=== PATIENT | female | born 1950 | race Caucasian/White ===

== ENCOUNTER 2017-05-05 16:15 | Inpatient (IN) | payer MEDICARE ==
[~2017-05-05] VITALS: Ht 157.5 cm; Wt 54.1 kg
[~2017-05-05 16:15] MED LIST: ADDE10 PO; ALBU0.08 NEB; ASPI81CH CHEW; DIAZ10TA PO; HYDR0.2O7 TOPICAL; MELO-1 PO; METF500T4 PO; NIAC100T2 PO; PANT20TA2 PO; SITA1TAB2 PO
[2017-05-06] MEDS ORDERED: PERC10TA27 PO (10:12)
[2017-05-06] MEDS ORDERED: LISI-519 PO (10:12)
[2017-05-23] MEDS ORDERED: INSULIN HUMAN REGULAR 1,000 UNITS/10 ML VIAL SQ PRN (06:30)
[2017-05-23] MEDS ORDERED: CHLORHEXIDINE GLUCONATE 2 % 1 PACK (2 CLOTHS) TOPICAL PRN (06:30)
[2017-05-23] MEDS ORDERED: METOPROLOL TARTRATE 25 MG TAB PO PRN (06:30)
[2017-05-23] MEDS ORDERED: SODIUM CHLORID 0.9% 500 ML IV PRN (06:30)
[2017-05-23] MEDS ORDERED: POVIDONE IODINE 5% (ANTISEPSIS KIT) 4 APPLICATIONS EACH NARE PRN (06:30)
[2017-05-23] MEDS ORDERED: LACTATED RINGER'S 1000 ML IV PRN (06:30)
[2017-05-23] MEDS ORDERED: SODIUM CHLORIDE 0.9% INJ 100 ML ONE ×3 (06:58→12:53)
[2017-05-23 07:14] VITALS: BP 91/54; PULSE 70; RESP 20; TEMP 98; O2SAT 100
[2017-05-23] MEDS: CLINDAMYCIN 600 MG/NS 100 ML IV SCH ×4 (07:27→13:10)
[2017-05-23] MEDS ORDERED: HEPARIN SODIUM - SQ 10,000 UNITS/ML VIAL ONE (07:43)
[2017-05-23] MEDS ORDERED: GELFOAM SIZE 100 ONE (07:44)
[2017-05-23] MEDS ORDERED: GENTAMICIN SULFATE 80 MG/2 ML VIAL ONE (07:44)
[2017-05-23] MEDS ORDERED: LIDOCAINE 1%/EPINEPHrine 1:100,000 SOLN 20 ML VIAL ONE (07:44)
[2017-05-23] MEDS ORDERED: THROMBIN (TOPICAL) 5,000 UNIT VIAL ONE (07:44)
[2017-05-23] MEDS ORDERED: ACETAMINOPHEN 1000 MG/100 ML VIAL IV ONE ×3 (08:09→18:00)
[2017-05-23] MEDS ORDERED: MIDAZOLAM HCL 2 MG/2 ML VIAL ONE (08:17)
[2017-05-23] MEDS ORDERED: NALOXONE HCL 0.4 MG/ML AMP IV PRN (08:45)
[2017-05-23] MEDS ORDERED: ACETAMINOPHEN/HYDROcodone 325 MG/5 MG TAB PO PRN (08:45)
[2017-05-23] MEDS ORDERED: HYDROmorphone HCL PF 1 MG/ML VIAL IV PRN (08:45)
[2017-05-23] MEDS ORDERED: SODIUM CHLORIDE 0.9% FLUSH 5 ML FLUSH IVF PRN ×3 (08:45→09:00)
[2017-05-23] MEDS ORDERED: ONDANSETRON HCL 4 MG/2 ML VIAL IV PRN (08:45)
[2017-05-23] MEDS ORDERED: ACETAMINOPHEN/HYDROcodone 325 MG/10 MG TAB PO PRN (08:45)
[2017-05-23] MEDS ORDERED: SODIUM CHLORIDE 0.9% FLUSH 5 ML FLUSH IVF SCH ×2 (09:00)
[2017-05-23] MEDS ORDERED: DEXTROSE 50% IN WATER 50 ML VIAL(D50) IV PRN (09:00)
[2017-05-23] MEDS ORDERED: RESP: ALBUTEROL 2.5 MG/3 ML NEB (PRN) NEB (09:00)
[2017-05-23] MEDS ORDERED: D5-1/2 NS + KCL 20 MEQ INJ 1,000 ML IV SCH (09:00)
[2017-05-23] MEDS ORDERED: HYDROmorphone HCL PCA 6 MG/30 ML IV SCH (09:00)
[2017-05-23] MEDS ORDERED: GLUCAGON 1 MG/ML VIAL OTHER PRN (09:00)
[2017-05-23] MEDS ORDERED: oxyCODONE/ACETAMINOPHEN 10 MG/325 MG TAB PO PRN (09:00)
[2017-05-23] MEDS: NIACIN 100 MG TAB PO SCH ×2 (10:00→20:51)
[2017-05-23] MEDS: metFORMIN HCL 500 MG TAB PO SCH ×2 (10:00→18:00)
[2017-05-23] MEDS: DOCUSATE SODIUM 100 MG CAP PO SCH ×2 (10:00→20:51)
[2017-05-23] MEDS ORDERED: HYDROCORTISONE VALERATE 0.2% TOPICAL SCH (10:00)
[2017-05-23] MEDS: DEXTROAMPHETAMINE/AMPHETAMINE 10 MG TAB PO SCH ×2 (10:00→20:51)
[2017-05-23] MEDS: PANTOPRAZOLE SOD 40 MG DELAYED RELEASE TAB PO SCH (10:00)
[2017-05-23] MEDS ORDERED: PROPOFOL 200 MG/20 ML AMP IV ONE (12:00)
[2017-05-23] MEDS ORDERED: PHENYLEPHRINE HCL 10 MG/ML VIAL IV ONE (12:00)
[2017-05-23] MEDS ORDERED: PHENYLEPH/NS 1000 MCG/10 ML SYR IV ONE ×2 (12:00)
[2017-05-23] MEDS ORDERED: LACTATED RINGER'S 1000 ML INJ 1,000 ML IV ONE (12:00)
[2017-05-23] MEDS ORDERED: NORMOSOL R INJ 1,000 ML IV ONE (12:00)
[2017-05-23] MEDS ORDERED: ONDANSETRON HCL 4 MG/2 ML VIAL IV PUSH ONE (12:00)
[2017-05-23] MEDS ORDERED: fentaNYL CITRATE 250 MCG/5 ML AMP ONE (15:44)
--- NOTE | 2017-05-23 17:38 | RADRPT ---
EXAM DATE/TIME: 05/23/2017 09:24 [facility] COMPARISON: No previous studies available for comparison. INDICATIONS : Lumbar L2-3-4 fusion with revision of lumbar L4-5-S1 fusion. Semi-laminectomy and cyst removal. OR. MEDICAL HISTORY : Myocardial infarction. SURGICAL HISTORY : Coronary artery stent. Fusion, lumbar. ENCOUNTER: Initial ACUITY: 1 day PAIN SCORE: Non-responsive. LOCATION: Lumbar L2-S1 FINDINGS: Multilevel fusion is identified with gross anatomical alignment. CONCLUSION: Intraoperative examination. Leonie Fiore MD on May 23, 2017 at 17:36 Board Certified Radiologist. This report was verified electronically.
[2017-05-23] MEDS ORDERED: NOREPINEPHRINE 4 MG/4 ML AMP ONE (17:52)
--- NOTE | 2017-05-23 17:52 | PD.OP ---
Operative Report Date of Surgery: May 23, 2017 Preoperative Diagnosis: (1) Lumbar canal stenosis (2) Lumbar radiculopathy (3) Synovial cyst of lumbar facet joint (4) Low back pain 1. L2-3, L3 4 degenerative disc disease, adjacent level degeneration above previous L4-S1 fusion 2. Mild L2-3 and severe L3 4 canal stenosis 3. L3 4 synovial cyst 4. Left lumbar radiculopathy 5. Severe progressive low back pain Postoperative Diagnosis: (1) Lumbar canal stenosis (2) Lumbar radiculopathy (3) Synovial cyst of lumbar facet joint (4) Low back pain 1. L2-3, L3 4 degenerative disc disease, adjacent level degeneration above previous L4-S1 fusion 2. Mild L2-3 and severe L3 4 canal stenosis 3. L3 4 synovial cyst 4. Left lumbar radiculopathy 5. Severe progressive low back pain Procedure: 1. Bilateral L3 4 decompressive semi-laminectomy, medial facetectomy- microtechnique 2. Resection left L3 4 synovial cyst-microtechnique 3. Bilateral L2-L5 posterior lateral fusion with local autograft bone, vertical cancellus chips and DBM-stem cell matrix 4. Bilateral L2-S1 posterior instrumentation with replacement of previous bilateral L4 pedicle screws and left L5 pedicle screw, placement of new bilateral L2-L3 pedicle screws Anesthesia: Gen. Surgeon: Daniel Mccray Manager Strategic Partnerships(s): Hilary Baldwin Operation and Findings: Findings: Severe bilateral L3-4 ligament hypertrophy with significant separation of the bilateral L2-3 and L3 4 facet. Moderate left L34 synovial cyst compressing the exiting left L4 nerve root. Procedure in detail: The patient was brought to the operating room and general endotracheal anesthesia induced without difficulty Lines were established per anesthesia. Sequential compression devices were in place. Marina catheter was placed. The patient was positioned prone on the concentric De table with the side bolsters and all extremities appropriately padded Leads for intraoperative neuro monitoring were placed prior to positioning and a baseline study obtained Appropriate timeout procedure was performed with all personnel present and in agreement The lumbar region was shaved with clippers and sterilely prepped and draped 1% Xylocaine with epinephrine was used for local infiltration over the incision site which was made from the L2 through L5 levels in the midline, extending partially over the previous mid lumbar midline incision. The incision was carried sharply down to the lumbodorsal fascia which was sharply incised Bunn elevator was used for subperiosteal elevation of paraspinous musculature and fascia away from the lamina and spinous processes of L2, L3, L4 bilaterally. The deep self-retaining retractor was placed and used mostly unilaterally and moved at least every 10 minutes during the procedure to avoid excessive muscle retraction. The appropriate levels were verified with intraoperative C-arm The microscope was moved into place and used for the remainder of the procedure including the closure The entry point for the pedicle screws at the bilateral L2 and L3 levels were determined by anatomic and radiographic landmarks. The pedicle screw site was prepared with the awl followed by the pedicle finder and the tap. The ball tip probe was used to probe the pedicle screw site to ensure that there was no breakout through the pedicle. The appropriate size 5.5 x 40 mm Spine Wave Viper pedicle screw was placed at each pedicle screw site The screw placement was verified with intraoperative C-arm and intraoperative neural monitoring and felt to be satisfactory. Initially, it was attempted to place a [id number] connector between the existing L4 and L5 pedicle screws to connect to the new L2 and L3 screws. However due to the relatively lateral placement of the previous screws and moo and the excessive kyphotic angle at the L3-4 level, it was not possible to utilize the available [id number] connector. As it was elected to remove the existing L4-S1 moo and utilize the screws for the new instrumentation construct. Utilizing the same incision, the midline fascia was released down to the S1 level and the previous L5 and S1 screws were exposed and the locking caps were moved from the bilateral L4, L5, S1 existing screws. The previous moo was then removed on each side. Due to the excessive L3-4 kyphotic curvature, the bilateral L4 and left L5 existing screws were removed and replaced with 7.5 x 45 mm spine wave sniper screws. The new L4 screws were intentionally left a little high in the pedicle in order to allow the moo to connect across the kyphotic segment to the new L2 and L3 screws. The new screws were tested with intraoperative EMG and felt to be satisfactory. The 90 mm and 100 mm new 5.5 mm rods were then bent to the appropriate curvature for the right and left L2-S1 posterior instrumentation construct respectively. The locking caps were then placed and final tightened with the torque wrench and antitorque device. The final instrumentation construct was checked with intraoperative C-arm and felt to be satisfactory. The patient had significant lordosis at the L2-3 and to a greater extent L3 4 levels. It was not felt possible to achieve adequate lordosis with an anterior fusion cage particularly at the L3 4 level, and since the patient did not have gross instability, it was elected to perform a posterior lateral fusion only, rather than an interbody fusion at these levels. Also, because there was relatively mild to moderate canal and lateral recess stenosis at the L2-3 level without significant L3 nerve impingement, it was felt that a fusion without decompression was appropriate for this level. The L2-3 fusion was indicated due to the significant bilateral L2-3 facet separation with moderate disc displacement, predisposing the patient to additional early adjacent level degeneration above the more caudal fusion. The TPS drill with a 5 mm bone bur followed by the Kerrison rongeur was used to remove the inferior two thirds of the left L3 lamina and the superior aspect of the residual left L4 lamina. In order to preserve the right side lamina for the posterior lateral fusion, the right L3 4 decompression was performed by working approximately midline with the TPS drill and the Kerrison rongeur to remove only the ventral portion of the right L3-L4 lamina and the right L3 4 medial facet. Hypertrophied ligamentum flavum was elevated away from the thecal sac and exiting nerve roots with the thin ligament dissector and resected with a 15 blade knife and Kerrison rongeur. There was severe bilateral L3-4 ligament hypertrophy. Upon retracting the ligament on the left side, moderate synovial cyst was encountered impinging on the left L4 nerve root. The cyst and hypertrophied ligament were elevated away from the nerve within ligament dissector and resected with the 3 mm Kerrison rongeur. A portion of the left L3-4 facet was left intact and the facet decorticated with the TPS drill for subsequent fusion. The bilateral L4 nerve root was palpated as it coursed around the L4 pedicle and followed back to the thecal sac. The 2 mm Kerrison was used on each side to further decompress the L4 nerve roots down to the level of the inferior medial L4 pedicle. The thecal sac and exiting nerve root were freed up from surrounding adhesions with the microdissectors and gently retracted medially revealing the underlying disc and annulus. No annular tear or herniated disc material was encountered. There was mostly mild diffuse disc and annular displacement without significant compression on the thecal sac or exiting nerve root. The region was well irrigated with antibiotic irrigation The posterior lateral structures at the bilateral L2-L5 levels were decorticated with the TPS drill The shavings were left in place, to which was added to the mixture of the remaining autograft bone and cortical cancellus chips and demineralized bone and stem cell matrix which was firmly packed in place for the posterior lateral fusion. The closure was performed with 0 Vicryl interrupted for the deep and superficial fascia, with 3-0 Vicryl for the subcutaneous closure and 4-0 Vicryl running subcuticular closure. Dressings sterile Mastisol, Steri-Strips and Primapore was placed The patient was turned into supine position and taken to recovery room in stable condition All counts were correct at the end of the case Estimated blood loss was 400 cc No specimen was sent to pathology Neuro monitoring was stable during the procedure Daniel Mccray MD May 23, 2017 17:52
[2017-05-23] MEDS ORDERED: NOREPINEPHRINE-DEXTROSE DRIP 250 ML IV SCH (18:00)
[2017-05-23] MEDS: KETOROLAC TROMETHAMINE 30 MG/ML (IVP) VIAL IV PUSH SCH (18:00)
[2017-05-23] MEDS ORDERED: SODIUM CHLOR 0.9% 250 ML INJ 250 ML IV ONE (18:00)
[2017-05-23] MEDS ORDERED: TERBUTALINE INJ 1 MG/ML AMP SQ PRN (18:00)
[2017-05-23] MEDS ORDERED: DO NOT ADM ANY ANTICOAGULANT DRUGS PRN (18:00)
[2017-05-23] MEDS ORDERED: LORazepam 2 MG/ML VIAL IV PUSH PRN (18:15)
[2017-05-23] MEDS: 1/2 NS + KCL 20 MEQ INJ 1,000 ML IV SCH ×2 (18:28→19:30)
[2017-05-23] MEDS: SODIUM CHLORIDE 0.9% FLUSH 5 ML FLUSH IVF SCH ×2 (18:30→20:46)
[2017-05-23] MEDS ORDERED: METHOCARBAMOL INJ 1,000 MG in SODIUM CHLOR 0.9% 250 ML INJ 250 ML IV ONE (18:45)
[2017-05-23] MEDS: INSULIN NovoLIN REGULAR SUPPLEMENTAL SCALE SQ SCH ×2 (18:48→20:46)
[2017-05-23 19:07] LABS: BICARBONATE 20.6 MEQ/L (21.0-32.0); POTASSIUM 4.1 MEQ/L (3.5-5.1)
[2017-05-23 20:05] LABS: AUTOMATED NEUTROPHIL # 10.9 TH/MM3 (1.8-7.7); BASOPHIL % 0.1 % (0.0-2.0); HEMATOCRIT 30.7 % (35.0-46.0); HEMO FLAGS DIFF FINAL; LYMPH % 3.9 % (9.0-44.0); LYMPHOCYTE # 0.5 TH/MM3 (1.0-4.8); MEAN CELL VOLUME 86.6 FL (80.0-100.0); MEAN CORPUSCULAR HEMOGLOBIN 27.6 PG (27.0-34.0); MEAN CORPUSCULAR HGB CONC 31.9 % (32.0-36.0); PLATELET COUNT 262 TH/MM3 (150-450); RED BLOOD COUNT 3.54 MIL/MM3 (4.00-5.30); RED CELL DISTRIBUTION WIDTH 15.2 % (11.6-17.2); WHITE BLOOD COUNT 12.1 TH/MM3 (4.0-11.0)
[2017-05-24] VITALS (15 sets, daily range): BP systolic 89–134; BP diastolic 51–72; PULSE 69–88; RESP 14–22; TEMP 98.2–99.5; O2SAT 97–100
[2017-05-24] MEDS: KETOROLAC TROMETHAMINE 30 MG/ML (IVP) VIAL IV PUSH SCH ×3 (00:53→11:34)
[2017-05-24] MEDS: 1/2 NS + KCL 20 MEQ INJ 1,000 ML IV SCH ×2 (04:09→14:12)
[2017-05-24] MEDS: INSULIN NovoLIN REGULAR SUPPLEMENTAL SCALE SQ SCH ×4 (07:00→21:00)
[2017-05-24] MEDS: PANTOPRAZOLE SOD 40 MG DELAYED RELEASE TAB PO SCH ×2 (09:00→09:51)
[2017-05-24] MEDS: SODIUM CHLORIDE 0.9% FLUSH 5 ML FLUSH IVF SCH ×2 (09:00→20:34)
[2017-05-24] MEDS: NIACIN 100 MG TAB PO SCH ×2 (09:00→20:33)
[2017-05-24] MEDS: LISINOPRIL 5 MG TAB PO SCH (09:00)
[2017-05-24] MEDS: DEXTROAMPHETAMINE/AMPHETAMINE 10 MG TAB PO SCH ×3 (09:00→20:33)
[2017-05-24] MEDS: metFORMIN HCL 500 MG TAB PO SCH ×2 (09:51→18:28)
[2017-05-24] MEDS: DOCUSATE SODIUM 100 MG CAP PO SCH ×2 (09:51→20:33)
--- NOTE | 2017-05-24 10:26 | HHI.NSPN ---
(Landen Rodriguez) History Chief Complaint: Back pain. (Landen Rodriguez) Interval History 05/23: The patient presented to [facility] to undergo a bilateral L3-4 decompressive laminectomy with resection of a left L3-4 synovial cyst followed by a bilateral L2-L5 posterior lateral fusion and bilateral L2-S1 posterior instrumentation due to L2-3 and L3-4 degenerative disc disease with canal stenosis and radiculopathy and a L3-4 synovial cyst. Post-operatively she was admitted to the [facility]. 05/24: The patient is awake and alert when seen this morning. She reports pain to the back which she relates to having been up and ambulating. She was seen ambulating with a wheeled walker with Physical Therapy beside her this morning prior to being seen. She does appear mildly uncomfortable. She does report left anterior wrist pain where an apparent a-line was in place. Nursing states the patient's systolic blood pressure is better and she is going to try to wean off the norepinephrine which is infusing at 2 mcg/min at present. The patient states she was on hydromorphone [employer] which was discontinued this morning because she didn't want it. She states that Pain Management had her on Percocet 10 in the morning and evening with a half tab in the afternoon which is what she wants her pain meds to be. (Landen Rodriguez) System Review Comments Constitutional: Patient denies any fever or chills. HEENT: Patient denies any visual or hearing difficulty. Neck: Patient denies any neck pain or difficulty moving the neck. Respiratory: Patient denies any shortness of breath or productive cough. Cardiovascular: Patient denies any chest pain, palpitations or irregular heartbeat. Gastrointestinal: Patient denies any abdominal pain, nausea, vomiting or incontinence of stool. Genitourinary: Patient has Marina catheter in place. Musculoskeletal: Patient complains of pain to the back and also to the left distal forearm/wrist. She endorses some weakness to the lower extremities with the left being the worse. She denies any other pain to the extremities. Neurologic: Patient states she has some weakness to the lower extremities with the left being the worse. She denies any headache, dizziness, numbness or tingling. (Landen Rodriguez) Exam Results Vital Signs Date Time Temp Pulse Resp B/P Pulse Ox O2 Delivery O2 Flow Rate FiO2 05/24/17 08:00 76 05/24/17 07:27 100 Nasal Cannula 2.00 05/24/17 06:00 14 05/24/17 04:00 98.2 122/72 Intake and Output 05/23/17 05/23/17 05/23/17 07:59 15:59 23:59 Intake Total 2450 ml Output Total 2000 ml Balance 450 ml (Landen Rodriguez) Physical Examination GENERAL: Patient is awake & alert and appears mildly uncomfortable w/o any apparent distress, normal affect. SKIN: Warm, dry & intact except for lumbar surgical incision w/intact dressing w /o any shadowing, erythema or streaking noted. The left anterior wrist is mildly swollen and ecchymotic and there appears to be a puncture site to the area. HEENT: Normocephalic, atraumatic. NECK: Full active ROM w/o pain, no JVD, trachea midline. CARDIOVASCULAR: S1S2 w/RRR w/o M/G/R, radial & pedal pulses 2+ bilaterally, cap refill < 2 sec, no pedal edema. Monitor is sinus rhythm w/o any ectopy noted. A norepinephrine drip is infusing a 2 mcg/min. RESPIRATORY: CTAB w/o W/R/R, equal excursion, non-laboured, on RA. GASTROINTESTINAL: Abdomen soft, nontender, positive bowel sounds. GENITOURINARY: A Marina catheter is in place to BSD w/clear yellow urine. MUSCULOSKELETAL: NARVAEZ w/o difficulty. Left anterior wrist/distal forearm TTP. Back TTP at surgical incision. NEUROLOGICAL: AAOx3. Speech clear & appropriate. Follows simple commands. Sensation intact to light touch to extremities. Motor strength is 3+ to 4/5 to the lower extremities with the left foot being weakest, RUE appears to be 4+ to 5/5, and LUE 3 to 4/5, some weakness may be due to pain . (Landen Rodriguez) Lab, Micro, Other Results Allergies Coded Allergies Type Severity Reaction Last Updated Verified Amlodipine Allergy Severe rash 05/06/17 Yes CRESTOR Allergy Severe Anaphylaxis 05/06/17 Yes Lipitor Allergy Severe swelling rash tongue swells 05/06/17 Yes Penicillin Allergy Severe THROAT CLOSES UP 05/06/17 Yes Strattera Allergy Severe Anaphylaxis 05/06/17 Yes Sulfa Allergy Severe THROAT CLOSES UP 05/06/17 Yes Recent Impressions Lumbar Spine X-Ray 05/23/17 0000 Signed Impressions: Service Date/Time: Tuesday, May 23, 2017 09:24 - CONCLUSION: Intraoperative examination. Leonie Fiore MD // 05:59 17:59 05:59 17:59 05:59 17:59 Intake Total 2000 ml 450 ml 3544 ml Output Total 1750 ml 250 ml 1100 ml Balance 250 ml 200 ml 2444 ml Intake Oral 100 ml 600 ml IV Total 350 ml 2944 ml Other 2000 ml Output Urine Total 1350 ml 250 ml 1100 ml Estimated Blood Loss 400 ml Laboratory Tests Test 05/23/17 05/23/17 05/23/17 07:15 18:28 19:53 Blood Type A NEGATIVE Antibody Screen NEGATIVE Sodium Level 140 MEQ/L Potassium Level 4.1 MEQ/L Chloride Level 108 MEQ/L Carbon Dioxide Level 20.6 MEQ/L Anion Gap 11 MEQ/L Blood Urea Nitrogen 15 MG/DL Creatinine 1.02 MG/DL Estimat Glomerular Filtration 55 ML/MIN Rate Random Glucose 145 MG/DL Calcium Level 8.3 MG/DL White Blood Count 12.1 TH/MM3 Red Blood Count 3.54 MIL/MM3 Hemoglobin 9.8 GM/DL Hematocrit 30.7 % Mean Corpuscular Volume 86.6 FL Mean Corpuscular Hemoglobin 27.6 PG Mean Corpuscular Hemoglobin 31.9 % Concent Red Cell Distribution Width 15.2 % Platelet Count 262 TH/MM3 Mean Platelet Volume 7.5 FL Neutrophils (%) (Auto) 90.0 % Lymphocytes (%) (Auto) 3.9 % Monocytes (%) (Auto) 6.0 % Eosinophils (%) (Auto) 0.0 % Basophils (%) (Auto) 0.1 % Neutrophils # (Auto) 10.9 TH/MM3 Lymphocytes # (Auto) 0.5 TH/MM3 Monocytes # (Auto) 0.7 TH/MM3 Eosinophils # (Auto) 0.0 TH/MM3 Basophils # (Auto) 0.0 TH/MM3 CBC Comment DIFF FINAL Differential Comment Vital Signs Date Time Temp Pulse Resp B/P Pulse Ox O2 Delivery O2 Flow Rate FiO2 05/24/17 08:00 76 05/24/17 07:27 100 Nasal Cannula 2.00 05/24/17 07:00 100 Nasal Cannula 2.00 05/24/17 06:15 100 Nasal Cannula 2.00 05/24/17 06:00 84 05/24/17 06:00 14 05/24/17 04:00 98.2 76 18 122/72 100 05/24/17 04:00 75 05/24/17 02:00 72 05/24/17 00:00 75 05/24/17 00:00 98.2 69 20 134/71 97 05/23/17 23:00 75 15 112/65 100 Nasal Cannula 2 05/23/17 22:30 77 12 106/63 100 Nasal Cannula 2 05/23/17 22:00 75 12 125/77 100 Nasal Cannula 2 05/23/17 21:45 76 15 104/60 100 Nasal Cannula 2 05/23/17 21:30 77 14 99/59 100 Nasal Cannula 2 05/23/17 21:15 77 13 95/58 100 Nasal Cannula 2 05/23/17 21:00 77 13 110/67 100 Nasal Cannula 2 05/23/17 20:45 78 14 114/70 100 Nasal Cannula 2 05/23/17 20:30 74 13 112/71 100 Nasal Cannula 2 05/23/17 20:15 76 15 115/66 100 Nasal Cannula 2 05/23/17 20:00 97.5 77 14 113/59 100 Nasal Cannula 2 05/23/17 19:45 79 13 127/75 100 Nasal Cannula 2 05/23/17 19:30 82 15 128/72 100 Nasal Cannula 2 05/23/17 19:15 80 13 135/73 100 Nasal Cannula 2 05/23/17 19:00 75 14 104/59 100 Nasal Cannula 2 05/23/17 18:45 85 21 143/76 100 Nasal Cannula 2 05/23/17 18:30 79 15 100/57 100 Nasal Cannula 2 05/23/17 18:15 84 21 125/72 100 Nasal Cannula 2 05/23/17 18:00 90 25 74/47 99 Nasal Cannula 2 05/23/17 17:45 96 22 78/56 96 Nasal Cannula 2 05/23/17 17:30 103 17 90/50 99 Nasal Cannula 2 05/23/17 17:26 15 05/23/17 17:15 101 14 94/50 100 Nasal Cannula 2 05/23/17 17:10 98.7 110 16 89/51 100 Nasal Cannula 2 05/23/17 07:14 98.0 70 20 91/54 100 (Landen Rodriguez) Medical Decision Making Impression and Plan Impression: (1) Lumbar canal stenosis (2) Lumbar radiculopathy (3) Synovial cyst of lumbar facet joint (4) Low back pain 1. L2-3, L3 4 degenerative disc disease, adjacent level degeneration above previous L4-S1 fusion 2. Mild L2-3 and severe L3 4 canal stenosis 3. L3 4 synovial cyst 4. Left lumbar radiculopathy 5. Severe progressive low back pain Patient is doing good but having pain, difficult to assess motor strength due to pain. POD #1 () s/p: 1. Bilateral L3 4 decompressive semi-laminectomy, medial facetectomy- microtechnique 2. Resection left L3 4 synovial cyst-microtechnique 3. Bilateral L2-L5 posterior lateral fusion with local autograft bone, vertical cancellus chips and DBM-stem cell matrix 4. Bilateral L2-S1 posterior instrumentation with replacement of previous bilateral L4 pedicle screws and left L5 pedicle screw, placement of new bilateral L2-L3 pedicle screws Plan: Continue neuro checks. Wean vasopressor as tolerated to maintain SBP > 100 mm Hg. Diet as tolerated. Mobilise patient with assistance. TLSO brace when OOB. PT eval & tx. Will change Percocet to home schedule RTC of Percocet 10 in the morning and evening with a half tab in the afternoon. Will keep morphine for breakthrough pain. D/C hydromorphone. Will recheck patient later to see if improved motor strength when pain is controlled. (Landen Rodriguez) Attending Statement I have personally seen and examined the patient on the date of this note. Pertinent documentation and study results have been reviewed by the undersigned. I have personally developed the treatment plan and performed medical decision making. Agree with findings, exam, and treatment plan as noted above. On examination today, the patient appears moderately uncomfortable. She requires assistance to turn in bed. Her incision is dry and intact. Sensation intact in all extremities Mild weakness left hand intrinsics which she states is due to pain in her left hand from an IV site. Good strength in the lower extremities She ambulated to the nursing station today with physical therapy Pain is not well controlled off of the DISASSEMBLER PRODUCT. Will add MS Contin. Continue therapy Weaning off of Levophed (Daniel Mccray MD) Landen Rodriguez May 24, 2017 10:26 Daniel Mccray MD May 24, 2017 19:25
[2017-05-24] MEDS: MORPHINE SULFATE 4 MG/ML INJ IV PRN ×3 (11:34→18:27)
[2017-05-24] MEDS: METHOCARBAMOL 500 MG TAB PO PRN ×2 (14:12→21:59)
[2017-05-24 17:45] LABS: AUTOMATED NEUTROPHIL # 4.6 TH/MM3 (1.8-7.7); BASOPHIL % 0.2 % (0.0-2.0); EOSINOPHIL # 0.1 TH/MM3 (0-0.4); HEMATOCRIT 27.2 % (35.0-46.0); HEMO FLAGS DIFF FINAL; LYMPH % 23.3 % (9.0-44.0); LYMPHOCYTE # 1.6 TH/MM3 (1.0-4.8); MEAN CELL VOLUME 86.9 FL (80.0-100.0); MEAN CORPUSCULAR HEMOGLOBIN 27.7 PG (27.0-34.0); MEAN CORPUSCULAR HGB CONC 31.9 % (32.0-36.0); MONO % 8.5 % (0.0-8.0); PLATELET COUNT 227 TH/MM3 (150-450); RED BLOOD COUNT 3.13 MIL/MM3 (4.00-5.30)
[2017-05-24 18:07] LABS: BICARBONATE 25.7 MEQ/L (21.0-32.0); POTASSIUM 4.3 MEQ/L (3.5-5.1)
[2017-05-24] MEDS: oxyCODONE/ACETAMINOPHEN 10 MG/325 MG TAB PO SCH (20:34)
[2017-05-24] MEDS: MORPHINE SULFATE 15 MG CONTROLLED RELEASE TAB PO SCH (20:34)
[2017-05-25] VITALS (11 sets, daily range): BP systolic 87–108; BP diastolic 57–66; PULSE 72–96; RESP 13–24; TEMP 97.7–99.3; O2SAT 94–99
[2017-05-25] MEDS: 1/2 NS + KCL 20 MEQ INJ 1,000 ML IV SCH ×2 (00:10→09:54)
[2017-05-25] MEDS: MORPHINE SULFATE 4 MG/ML INJ IV PRN (06:04)
[2017-05-25] MEDS: DIAZEPAM 10 MG TAB PO PRN (06:17)
[2017-05-25] MEDS: INSULIN NovoLIN REGULAR SUPPLEMENTAL SCALE SQ SCH ×3 (07:00→16:00)
[2017-05-25] MEDS: SODIUM CHLORIDE 0.9% FLUSH 5 ML FLUSH IVF SCH ×2 (09:00→21:00)
[2017-05-25] MEDS: DOCUSATE SODIUM 100 MG CAP PO SCH ×2 (09:50→21:03)
[2017-05-25] MEDS: NIACIN 100 MG TAB PO SCH ×2 (09:50→21:03)
[2017-05-25] MEDS: DEXTROAMPHETAMINE/AMPHETAMINE 10 MG TAB PO SCH ×2 (09:50→21:00)
[2017-05-25] MEDS: PANTOPRAZOLE SOD 40 MG DELAYED RELEASE TAB PO SCH (09:50)
[2017-05-25] MEDS: MORPHINE SULFATE 15 MG CONTROLLED RELEASE TAB PO SCH (09:51)
[2017-05-25] MEDS: LISINOPRIL 5 MG TAB PO SCH (09:51)
[2017-05-25] MEDS: metFORMIN HCL 500 MG TAB PO SCH ×2 (09:51→18:32)
[2017-05-25] MEDS: oxyCODONE/ACETAMINOPHEN 10 MG/325 MG TAB PO SCH ×2 (09:52→21:03)
--- NOTE | 2017-05-25 11:41 | HHI.NSPN ---
History Chief Complaint: Back pain, mostly related to the brace. Interval History 05/23: The patient presented to [facility] to undergo a bilateral L3-4 decompressive laminectomy with resection of a left L3-4 synovial cyst followed by a bilateral L2-L5 posterior lateral fusion and bilateral L2-S1 posterior instrumentation due to L2-3 and L3-4 degenerative disc disease with canal stenosis and radiculopathy and a L3-4 synovial cyst. Post-operatively [facility]. 05/24: The patient is awake and alert when seen this morning. She reports pain to the back which she relates to having been up and ambulating. She was seen ambulating with a wheeled walker with Physical Therapy beside her this morning prior to being seen. She does appear mildly uncomfortable. She does report left anterior wrist pain where an apparent a-line was in place. Nursing states the patient's systolic blood pressure is better and she is going to try to wean off the norepinephrine which is infusing at 2 mcg/min at present. 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 She states that Pain Management had her on Percocet 10 in the morning and evening with a half tab in the afternoon which is what she wants her pain meds to be. 05/25: The patient is awake and alert this morning. She complains of back pain, but states that the pain to the back itself isn't too bad but how the brace is against her back that is causing the most pain. She is requesting that the INDUSTRIAL PSYCHOLOGY TEACHER pump be restarted until she gets use to the brace. The norepinephrine drip was discontinued this morning. System Review Comments Constitutional: Patient denies any fever or chills. HEENT: Patient denies any visual or hearing difficulty. Neck: Patient denies any neck pain or difficulty moving the neck. Respiratory: Patient denies any shortness of breath or productive cough. Cardiovascular: Patient denies any chest pain, palpitations or irregular heartbeat. Gastrointestinal: Patient denies any abdominal pain, nausea, vomiting or incontinence of stool. Genitourinary: Patient has Marina catheter in place. Musculoskeletal: Patient complains of some back pain but her major complaint is pain from the brace, especially laying on it. The left distal forearm/wrist is better. She denies any weakness or other pain to the extremities. Neurologic: Patient denies any headache, dizziness, numbness or tingling. Exam Results Vital Signs Date Time Temp Pulse Resp B/P Pulse Ox O2 Delivery O2 Flow Rate FiO2 05/25/17 07:00 98 Room Air 05/25/17 04:00 99.0 86 20 101/66 05/24/17 07:27 2.00 Intake and Output 05/24/17 05/24/17 05/25/17 08:00 16:00 00:00 Intake Total 3544 ml 1004 ml 861 ml Output Total 1100 ml 625 ml 1000 ml Balance 2444 ml 379 ml -139 ml Physical Examination GENERAL: Patient is awake & alert and appears mildly uncomfortable w/o any apparent distress, flat affect. SKIN: Warm, dry & intact except for lumbar surgical incision w/intact dressing w /o any shadowing, erythema or streaking noted. The left anterior wrist is minimally swollen with evolving ecchymosis. HEENT: Normocephalic, atraumatic. NECK: Full active ROM w/o pain, no JVD, trachea midline. CARDIOVASCULAR: S1S2 w/RRR w/o M/G/R, radial & pedal pulses 2+ bilaterally, cap refill < 2 sec, no pedal edema. Monitor is sinus rhythm w/o any ectopy noted. RESPIRATORY: CTAB w/o W/R/R, equal excursion, non-laboured, on RA. GASTROINTESTINAL: Abdomen soft, nontender, positive bowel sounds. GENITOURINARY: Marina catheter to BSD w/clear yellow urine. MUSCULOSKELETAL: NARVAEZ w/o difficulty. Left anterior wrist/distal forearm mildly TTP. Back TTP at surgical incision, less so along paraspinals. NEUROLOGICAL: AAOx3. Speech clear & appropriate. Follows simple commands. Sensation intact to light touch to extremities. Motor strength is 4+ to 5/5 to all major flexion & extension muscle groups. Medical Decision Making Impression and Plan Impression: (1) Lumbar canal stenosis (2) Lumbar radiculopathy (3) Synovial cyst of lumbar facet joint (4) Low back pain 1. L2-3, L3 4 degenerative disc disease, adjacent level degeneration above previous L4-S1 fusion 2. Mild L2-3 and severe L3 4 canal stenosis 3. L3 4 synovial cyst 4. Left lumbar radiculopathy 5. Severe progressive low back pain Patient continues to do well and is neurologically intact although her pain is not well controlled. POD #2 () s/p: 1. Bilateral L3 4 decompressive semi-laminectomy, medial facetectomy- microtechnique 2. Resection left L3 4 synovial cyst-microtechnique 3. Bilateral L2-L5 posterior lateral fusion with local autograft bone, vertical cancellus chips and DBM-stem cell matrix 4. Bilateral L2-S1 posterior instrumentation with replacement of previous bilateral L4 pedicle screws and left L5 pedicle screw, placement of new bilateral L2-L3 pedicle screws Plan: Continue neuro checks. Maintain SBP > 100 mm Hg. Diet as tolerated. Mobilise patient with assistance. TLSO brace when OOB. PT yola & tx. Landen Rodriguez May 25, 2017 11:41
[2017-05-25] MEDS ORDERED: HYDROmorphone HCL PF 1 MG/ML VIAL IV PUSH PRN (12:45)
[2017-05-25] MEDS: oxyCODONE/ACETAMINOPHEN 5 MG/325 MG TAB PO SCH (13:27)
[2017-05-25] MEDS: METHOCARBAMOL 500 MG TAB PO PRN (16:14)
[2017-05-25] MEDS: HYDROmorphone HCL 2 MG TAB PO PRN ×2 (18:44→23:08)
[2017-05-25] MEDS ORDERED: PILL SPLITTER OTHER PRN (18:45)
[2017-05-26] VITALS: PULSE 78
[2017-05-26 02:35] VITALS: BP 102/60; PULSE 77; RESP 17; TEMP 96.7; O2SAT 100
[2017-05-26] MEDS: HYDROmorphone HCL 2 MG TAB PO PRN ×2 (02:57→06:45)
[2017-05-26] MEDS: 1/2 NS + KCL 20 MEQ INJ 1,000 ML IV SCH ×2 (03:00→11:22)
[2017-05-26] MEDS: INSULIN NovoLIN REGULAR SUPPLEMENTAL SCALE SQ SCH ×4 (06:45→20:54)
[2017-05-26 08:00] VITALS: BP 99/68; PULSE 93; RESP 18; TEMP 97; O2SAT 98
[2017-05-26] MEDS: SODIUM CHLORIDE 0.9% FLUSH 5 ML FLUSH IVF SCH ×2 (09:00→20:47)
[2017-05-26] MEDS: metFORMIN HCL 500 MG TAB PO SCH ×3 (09:00→17:51)
[2017-05-26] MEDS: DOCUSATE SODIUM 100 MG CAP PO SCH ×2 (09:25→20:46)
[2017-05-26] MEDS: NIACIN 100 MG TAB PO SCH ×2 (09:25→20:46)
[2017-05-26] MEDS: oxyCODONE/ACETAMINOPHEN 10 MG/325 MG TAB PO SCH ×2 (09:25→20:47)
[2017-05-26] MEDS: DEXTROAMPHETAMINE/AMPHETAMINE 10 MG TAB PO SCH ×2 (09:25→20:46)
[2017-05-26] MEDS: LISINOPRIL 5 MG TAB PO SCH (09:26)
[2017-05-26] MEDS: PANTOPRAZOLE SOD 40 MG DELAYED RELEASE TAB PO SCH (09:26)
[2017-05-26] MEDS: DIAZEPAM 10 MG TAB PO PRN ×2 (11:21→20:46)
[2017-05-26 12:00] VITALS: BP 105/72; PULSE 100; RESP 18; TEMP 98.6; O2SAT 95
[2017-05-26] MEDS ORDERED: SODIUM CHLORIDE 0.65% NASAL DRP/SPRY 30 ML BTL EACH NARE PRN (12:00)
--- NOTE | 2017-05-26 12:06 | HHI.NSPN ---
History Chief Complaint: Some pain to the back. Interval History 05/23: The patient presented to [facility] to undergo a bilateral L3-4 decompressive laminectomy with resection of a left L3-4 synovial cyst followed by a bilateral L2-L5 posterior lateral fusion and bilateral L2-S1 posterior instrumentation due to L2-3 and L3-4 degenerative disc disease with canal stenosis and radiculopathy and a L3-4 synovial cyst. Post-operatively she was admitted to the [facility]. 05/24: The patient is awake and alert when seen this morning. She reports pain to the back which she relates to having been up and ambulating. She was seen ambulating with a wheeled walker with Physical Therapy beside her this morning prior to being seen. She does appear mildly uncomfortable. She does report left anterior wrist pain where an apparent a-line was in place. Nursing states the patient's systolic blood pressure is better and she is going to try to wean off the norepinephrine which is infusing at 2 mcg/min at present. The patient states she was on hydromorphone BOARD OF DIRECTORS which was discontinued this morning because she didn't want it. She states that Pain Management had her on Percocet 10 in the morning and evening with a half tab in the afternoon which is what she wants her pain meds to be. 05/25: The patient is awake and alert this morning. She complains of back pain, but states that the pain to the back itself isn't too bad but how the brace is against her back that is causing the most pain. She is requesting that the BOARD OF DIRECTORS pump be restarted until she gets use to the brace. The norepinephrine drip was discontinued this morning. 05/26: The patient is awake but tearful this morning when seen. She states she has some soreness to the back but her major complaint is anxiety and being upset due to the TLSO brace that she was given her in the hospital causing pain. The family did bring in her LSO brace that she had at home. She is refusing to wear the TLSO brace from here. The patient was transferred to a regular med/surg floor yesterday from [facility]. Physical Therapy was at the bedside when the patient was seen. As the note was being completed Physical Therapy stated that the patient did put on the TLSO brace and got up into the chair but she was complaining of pain to the anterior chest wall from the thoracic support. System Review Comments Constitutional: Patient denies any fever or chills. HEENT: Patient denies any visual or hearing difficulty. Neck: Patient denies any neck pain or difficulty moving the neck. Respiratory: Patient denies any shortness of breath or productive cough. Cardiovascular: Patient denies any chest pain, palpitations or irregular heartbeat. Gastrointestinal: Patient complains of being gaseous/bloating. She did say she hasn't had a bowel movement in two days. She denies any abdominal pain, nausea, vomiting or incontinence of stool. Genitourinary: Patient has Marina catheter in place. Musculoskeletal: Patient has some back pain. She denies any weakness or other pain to the extremities. Neurologic: Patient denies any headache, dizziness, numbness or tingling. Psychiatric: Patient states very upset and anxious due to the brace situation. Exam Results Vital Signs Date Time Temp Pulse Resp B/P Pulse Ox O2 Delivery O2 Flow Rate FiO2 05/26/17 08:00 97.0 93 18 99/68 98 05/26/17 03:15 Room Air 05/25/17 20:13 21 05/24/17 07:27 2.00 Intake and Output 05/25/17 05/25/17 05/26/17 08:00 16:00 00:00 Intake Total 1069 ml 1221 ml 442 ml Output Total 1500 ml 1450 ml 950 ml Balance -431 ml -229 ml -508 ml Physical Examination GENERAL: Patient is awake & alert. She is tearful because of anxiety and frustration due to the TLSO brace causing pain. Her affect is essentially normal. She is not in any apparent distress. SKIN: Warm, dry & intact except for lumbar surgical incision w/intact dressing w /o any shadowing, erythema or streaking noted. The left anterior wrist is minimally swollen with resolving ecchymosis. HEENT: Normocephalic, atraumatic. NECK: Full active ROM w/o pain, no JVD, trachea midline. CARDIOVASCULAR: S1S2 w/RRR w/o M/G/R, radial & pedal pulses 2+ bilaterally, cap refill < 2 sec, no pedal edema. RESPIRATORY: CTAB w/o W/R/R, equal excursion, non-laboured, on RA. GASTROINTESTINAL: Abdomen soft, nontender, positive bowel sounds. GENITOURINARY: Marina catheter to BSD w/clear yellow urine. MUSCULOSKELETAL: NARVAEZ w/o difficulty. Left anterior wrist/distal forearm mildly TTP. Back TTP at surgical incision, less so along paraspinals. NEUROLOGICAL: AAOx3. Speech clear & appropriate. Follows simple commands. Sensation intact to light touch to extremities. Motor strength is 4+ to 5/5 to all major flexion & extension muscle groups. Medical Decision Making Impression and Plan Impression: (1) Lumbar canal stenosis (2) Lumbar radiculopathy (3) Synovial cyst of lumbar facet joint (4) Low back pain 1. L2-3, L3 4 degenerative disc disease, adjacent level degeneration above previous L4-S1 fusion 2. Mild L2-3 and severe L3 4 canal stenosis 3. L3 4 synovial cyst 4. Left lumbar radiculopathy 5. Severe progressive low back pain Patient continues to do well and is neurologically intact, her pain seems better controlled. Anxiety. POD #3 () s/p: 1. Bilateral L3 4 decompressive semi-laminectomy, medial facetectomy- microtechnique 2. Resection left L3 4 synovial cyst-microtechnique 3. Bilateral L2-L5 posterior lateral fusion with local autograft bone, vertical cancellus chips and DBM-stem cell matrix 4. Bilateral L2-S1 posterior instrumentation with replacement of previous bilateral L4 pedicle screws and left L5 pedicle screw, placement of new bilateral L2-L3 pedicle screws Plan: Continue neuro checks. Maintain SBP > 100 mm Hg. Diet as tolerated. Mobilise patient with assistance. Brace when OOB. PT eval & tx. Will start Miralax in addition to the Docusate. Landen Rodriguez May 26, 2017 12:06
[2017-05-26] MEDS: METHOCARBAMOL 500 MG TAB PO PRN ×2 (12:48→20:46)
[2017-05-26] MEDS: POLYETHYLENE GLYCOL 17 GM PKG PO SCH (12:48)
[2017-05-26] MEDS: oxyCODONE/ACETAMINOPHEN 5 MG/325 MG TAB PO SCH (14:04)
[2017-05-26 16:00] VITALS: BP_SYST 103; BP_SYST 118; BP_DIAS 72; PULSE 86; PULSE 93; RESP 18; TEMP 97.4; TEMP 98.3; O2SAT 95; O2SAT 98
[2017-05-26 19:00] VITALS: BP 92/53; PULSE 65; RESP 16; TEMP 98.7; O2SAT 95
[2017-05-27] VITALS: BP 92/55; PULSE 81; RESP 16; TEMP 97.8; O2SAT 98
[2017-05-27 04:00] VITALS: BP 90/68; PULSE 79; RESP 17; TEMP 96.6; O2SAT 96
[2017-05-27] MEDS: METHOCARBAMOL 500 MG TAB PO PRN (05:03)
[2017-05-27] MEDS: INSULIN NovoLIN REGULAR SUPPLEMENTAL SCALE SQ SCH ×3 (05:55→16:00)
[2017-05-27 08:00] VITALS: BP 88/57; PULSE 84; RESP 16; TEMP 98.7; O2SAT 98
[2017-05-27 08:40] VITALS: BP 88/54
[2017-05-27] MEDS: SODIUM CHLORIDE 0.9% FLUSH 5 ML FLUSH IVF SCH (09:00)
[2017-05-27] MEDS: NIACIN 100 MG TAB PO SCH (09:00)
[2017-05-27] MEDS: metFORMIN HCL 500 MG TAB PO SCH (09:00)
[2017-05-27] MEDS: POLYETHYLENE GLYCOL 17 GM PKG PO SCH (09:00)
[2017-05-27] MEDS: DOCUSATE SODIUM 100 MG CAP PO SCH (09:00)
[2017-05-27] MEDS: oxyCODONE/ACETAMINOPHEN 10 MG/325 MG TAB PO SCH ×2 (09:00→12:19)
[2017-05-27] MEDS: PANTOPRAZOLE SOD 40 MG DELAYED RELEASE TAB PO SCH (09:00)
[2017-05-27] MEDS: LISINOPRIL 5 MG TAB PO SCH (09:00)
[2017-05-27] MEDS: DEXTROAMPHETAMINE/AMPHETAMINE 10 MG TAB PO SCH (10:55)
[2017-05-27] MEDS: 1/2 NS + KCL 20 MEQ INJ 1,000 ML IV SCH (11:30)
[2017-05-27 12:00] VITALS: BP 109/73; PULSE 83; RESP 16; TEMP 97.7; O2SAT 100
[2017-05-27] MEDS: oxyCODONE/ACETAMINOPHEN 5 MG/325 MG TAB PO SCH (12:59)
[2017-05-27 16:00] VITALS: BP 131/74; PULSE 84; RESP 16; TEMP 98.8; O2SAT 100
--- NOTE | 2017-05-27 16:30 | HHI.NSPN ---
History Chief Complaint: Some pain to the back. Interval History 05/23: The patient presented to [facility] to undergo a bilateral L3-4 decompressive laminectomy with resection of a left L3-4 synovial cyst followed by a bilateral L2-L5 posterior lateral fusion and bilateral L2-S1 posterior instrumentation due to L2-3 and L3-4 degenerative disc disease with canal stenosis and radiculopathy and a L3-4 synovial cyst. Post-operatively she was admitted to the [facility]. 05/24: The patient is awake and alert when seen this morning. She reports pain to the back which she relates to having been up and ambulating. She was seen ambulating with a wheeled walker with Physical Therapy beside her this morning prior to being seen. She does appear mildly uncomfortable. She does report left anterior wrist pain where an apparent a-line was in place. Nursing states the patient's systolic blood pressure is better and she is going to try to wean off the norepinephrine which is infusing at 2 mcg/min at present. The patient states she was on hydromorphone AURIST which was discontinued this morning because she didn't want it. She states that Pain Management had her on Percocet 10 in the morning and evening with a half tab in the afternoon which is what she wants her pain meds to be. 05/25: The patient is awake and alert this morning. She complains of back pain, but states that the pain to the back itself isn't too bad but how the brace is against her back that is causing the most pain. She is requesting that the AURIST pump be restarted until she gets use to the brace. The norepinephrine drip was discontinued this morning. 05/26: The patient is awake but tearful this morning when seen. She states she has some soreness to the back but her major complaint is anxiety and being upset due to the TLSO brace that she was given her in the hospital causing pain. The family did bring in her LSO brace that she had at home. She is refusing to wear the TLSO brace from here. The patient was transferred to a regular med/surg floor yesterday from [facility]. Physical Therapy was at the bedside when the patient was seen. As the note was being completed Physical Therapy stated that the patient did put on the TLSO brace and got up into the chair but she was complaining of pain to the anterior chest wall from the thoracic support. 05/27: The patient is awake and alert this afternoon. She states she is doing fine and ready to go home. She does say she has some pain to the back but it is okay. Nursing says the patient is anxious to go home. This morning Nursing states the patient's SBP did drop to 78 mm Hg but she was not symptomatic. It did come up to 109 mm Hg at noon time. System Review Comments Constitutional: Patient denies any fever or chills. HEENT: Patient denies any visual or hearing difficulty. Neck: Patient denies any neck pain or difficulty moving the neck. Respiratory: Patient denies any shortness of breath or productive cough. Cardiovascular: Patient denies any chest pain, palpitations or irregular heartbeat. Gastrointestinal: Patient denies any abdominal pain, nausea, vomiting or incontinence of stool. She reports having a bowel movement this morning. Genitourinary: Patient denies any incontinence of urine. Musculoskeletal: Patient with some back pain. She denies any weakness or other pain to the extremities. Neurologic: Patient denies any headache, dizziness, numbness or tingling. Exam Results Vital Signs Date Time Temp Pulse Resp B/P Pulse Ox O2 Delivery O2 Flow Rate FiO2 05/27/17 12:00 97.7 83 16 109/73 100 05/26/17 03:15 Room Air 05/25/17 20:13 21 05/24/17 07:27 2.00 Intake and Output 05/26/17 05/26/17 05/27/17 08:00 16:00 00:00 Intake Total 613 ml 480 ml 350 ml Output Total 1100 ml 550 ml Balance -487 ml -70 ml 350 ml Physical Examination GENERAL: Patient is awake & alert, resting comfortably in bed. Her affect is essentially normal. She is not in any apparent distress. SKIN: Warm, dry & intact except for lumbar surgical incision w/intact dressing w /o any shadowing, erythema or streaking noted, the surgical incision is well approximated steri-strips intact. The left anterior wrist is not swollen but does have resolving ecchymosis. HEENT: Normocephalic, atraumatic. NECK: Full active ROM w/o pain, no JVD, trachea midline. CARDIOVASCULAR: S1S2 w/RRR w/o M/G/R, radial & pedal pulses 2+ bilaterally, cap refill < 2 sec, no pedal edema. RESPIRATORY: CTAB w/o W/R/R, equal excursion, non-laboured, on RA. GASTROINTESTINAL: Abdomen soft, nontender, positive bowel sounds. MUSCULOSKELETAL: NARVAEZ w/o difficulty. Left anterior wrist/distal forearm NTTP. Back minimally TTP at surgical incision. NEUROLOGICAL: AAOx3. Speech clear & appropriate. Follows simple commands. Sensation intact to light touch to extremities. Motor strength is 4+ to 5/5 to all major flexion & extension muscle groups. Medical Decision Making Impression and Plan Impression: (1) Lumbar canal stenosis (2) Lumbar radiculopathy (3) Synovial cyst of lumbar facet joint (4) Low back pain 1. L2-3, L3 4 degenerative disc disease, adjacent level degeneration above previous L4-S1 fusion 2. Mild L2-3 and severe L3 4 canal stenosis 3. L3 4 synovial cyst 4. Left lumbar radiculopathy 5. Severe progressive low back pain Patient is doing good, she is neurologically intact and her pain appears controlled. Anxiety, improved. POD #4 () s/p: 1. Bilateral L3 4 decompressive semi-laminectomy, medial facetectomy- microtechnique 2. Resection left L3 4 synovial cyst-microtechnique 3. Bilateral L2-L5 posterior lateral fusion with local autograft bone, vertical cancellus chips and DBM-stem cell matrix 4. Bilateral L2-S1 posterior instrumentation with replacement of previous bilateral L4 pedicle screws and left L5 pedicle screw, placement of new bilateral L2-L3 pedicle screws Plan: Will discharge patient home this afternoon. Landen Rodriguez May 27, 2017 16:30
--- NOTE | 2017-05-27 16:39 | HHI.FF ---
Face to Face Verification Diagnosis: (1) S/P lumbar fusion (2) Low back pain (3) Synovial cyst of lumbar facet joint (4) Lumbar degenerative disc disease (5) Lumbar radiculopathy (6) Lumbar canal stenosis Physical Therapy Order: Evaluate and Treat, Improve ambulation, Strength and gait training Home Health Nursing Order: Wound care and dressing changes I have seen patient Ceferino Patterson on 05/27/17. My clinical findings support the need for the requested home health care services because: Deconditioned w/ increased weakness High risk of falls I certify that my clinical findings support that this patient is homebound because: Post-op weakness Unsteady gait/balance Landen Rodriguez [facility] May 27, 2017 16:39
--- NOTE | 2017-05-27 16:43 | HHI.DS ---
Discharge Summary Admission Date May 23, 2017 at 05:52 Discharge Date: May 27, 2017 Admitting Diagnosis (1) Low back pain Diagnosis: Secondary ICD Code: M54.5 (2) Synovial cyst of lumbar facet joint Diagnosis: Secondary ICD Code: M71.38 (3) Lumbar degenerative disc disease Diagnosis: Secondary ICD Code: M51.36 (4) Lumbar radiculopathy Diagnosis: Secondary ICD Code: M54.16 (5) Lumbar canal stenosis Diagnosis: Secondary ICD Code: M48.06 (6) S/P lumbar fusion Diagnosis: Principal ICD Code: Z98.1 Procedures s/p: 1. Bilateral L3 4 decompressive semi-laminectomy, medial facetectomy- microtechnique 2. Resection left L3 4 synovial cyst-microtechnique 3. Bilateral L2-L5 posterior lateral fusion with local autograft bone, vertical cancellus chips and DBM-stem cell matrix 4. Bilateral L2-S1 posterior instrumentation with replacement of previous bilateral L4 pedicle screws and left L5 pedicle screw, placement of new bilateral L2-L3 pedicle screws CBC/BMP: 05/24/17 1700 05/24/17 1700 Significant Findings Laboratory Tests Test 05/24/17 17:00 Red Blood Count 3.13 MIL/MM3 (4.00-5.30) Hemoglobin 8.7 GM/DL (11.6-15.3) Hematocrit 27.2 % (35.0-46.0) Mean Corpuscular Hemoglobin 31.9 % Concent (32.0-36.0) Monocytes (%) (Auto) 8.5 % (0.0-8.0) Estimat Glomerular Filtration 59 ML/MIN (>89) Rate Calcium Level 8.3 MG/DL (8.5-10.1) Hospital Course 05/23: The patient presented to [facility] to undergo a bilateral L3-4 decompressive laminectomy with resection of a left L3-4 synovial cyst followed by a bilateral L2-L5 posterior lateral fusion and bilateral L2-S1 posterior instrumentation due to L2-3 and L3-4 degenerative disc disease with canal stenosis and radiculopathy and a L3-4 synovial cyst. Post-operatively she was admitted to the [facility]. 05/24: The patient is awake and alert when seen this morning. She reports pain to the back which she relates to having been up and ambulating. She was seen ambulating with a wheeled walker with Physical Therapy beside her this morning prior to being seen. She does appear mildly uncomfortable. She does report left anterior wrist pain where an apparent a-line was in place. Nursing states the patient's systolic blood pressure is better and she is going to try to wean off the norepinephrine which is infusing at 2 mcg/min at present. The patient states she was on hydromorphone WET CHEMISTRY ANALYST which was discontinued this morning because she didn't want it. She states that Pain Management had her on Percocet 10 in the morning and evening with a half tab in the afternoon which is what she wants her pain meds to be. 2: The patient is awake and alert this morning. She complains of back pain, but states that the pain to the back itself isn't too bad but how the brace is against her back that is causing the most pain. She is requesting that the WET CHEMISTRY ANALYST pump be restarted until she gets use to the brace. The norepinephrine drip was discontinued this morning. 05/26: The patient is awake but tearful this morning when seen. She states she has some soreness to the back but her major complaint is anxiety and being upset due to the TLSO brace that she was given her in the hospital causing pain. The family did bring in her LSO brace that she had at home. She is refusing to wear the TLSO brace from here. The patient was transferred to a regular med/surg floor yesterday from [facility]. Physical Therapy was at the bedside when the patient was seen. As the note was being completed Physical Therapy stated that the patient did put on the TLSO brace and got up into the chair but she was complaining of pain to the anterior chest wall from the thoracic support. 4: The patient is awake and alert this afternoon. She states she is doing fine and ready to go home. She does say she has some pain to the back but it is okay. Nursing says the patient is anxious to go home. This morning Nursing states the patient's SBP did drop to 78 mm Hg but she was not symptomatic. It did come up to 109 mm Hg at noon time. Pt Condition on Discharge: Good Discharge Disposition: Disch w/ Home Health Serv Discharge Instructions DIET: Follow Instructions for: As Tolerated, No Restrictions ACTIVITIES You can perform: Weight Bearing As Sarah Activities to Avoid: Lifting/Bending, Strenuous Activity ADDITIONAL Activity Instructio: No reaching or turning with the back. Wear the LSO brace when out of bed. Additional Information Leave the dressing on until and then take the white outer dressing off but leave the steri-strips intact. After that you may shower and let the steri-strips fall off on their own. Avoid any medication containing aspirin or a NSAID (ibuprofen, Advil, Motrin, naproxen, etc.). Follow up in the office in 2 weeks. Landen Rodriguez May 27, 2017 16:43
--- NOTE | 2017-05-27 16:48 | HHI.DCPOC ---
Discharge Care Plan Diagnosis: (1) S/P lumbar fusion (2) Low back pain (3) Synovial cyst of lumbar facet joint (4) Lumbar degenerative disc disease (5) Lumbar radiculopathy (6) Lumbar canal stenosis Your Health Problems Are: Incision/Drains Exercise Tolerance Loss of Movements Goals to Promote Your Health * To prevent worsening of your condition and complications * To maintain your health at the optimal level Directions to Meet Your Goals Take your medications as prescribed Follow your dietary instruction Follow activity as directed Wear the LSO brace when out of bed. No bending, reaching, turning with the back, lifting or other strenuous activity. You may remove the outer dressing on but leave the steri-strips intact. After that you may shower and let the steri-strips fall off in the shower. Keep your appointments as scheduled Take your immunizations and boosters as scheduled If your symptoms worsen call your PCP, if no PCP go to Urgent Care Center or Emergency Room Smoking is Dangerous to Your Health. Avoid second hand smoke Call the 24-hour hour crisis hotline for domestic abuse at Landen Rodriguez May 27, 2017 16:48
[2017-05-27] MEDS ORDERED: POLY17S PO (17:01)
[2017-05-27] MEDS ORDERED: DOCU1CAP39 PO (17:01)
[2017-05-27] MEDS ORDERED: METH500T3 PO (17:01)
[2017-05-27] MEDS ORDERED: OXYC1TAB36 PO (17:40)
[2017-05-27] MEDS ORDERED: DILA2TAB2 PO (17:40)
== END 2017-05-27 18:53 | disposition home or self-care (01) | DRG 460 ==
LOC: HSDI 05-23 05:52 → N03A 05-23 23:35 → N06B 05-26 02:22
PROVIDERS: ADMIT Neurological Surgery; ATTEND Neurological Surgery
PROC: 00NY0ZZ Release Lumbar Spinal Cord, Open Approach (ICD-10-PCS; 2017-05-23)
PROC: XRG New Technology, Joints, Fusion (ICD-10-PCS; principal; 2017-05-23 08:21)
DX: M48.06 Spinal stenosis, lumbar region (principal); M51.16 Intervertebral disc disorders with radiculopathy, lumbar region; M71.38 Other bursal cyst, other site
CPT/HCPCS: 72100; 76000; 80048; 82948; 85025; 86850; 86900; 86901; 87641; 94150; C1713; J0131; J1170; J1580; J1644; J1885; J2060; J2250; J2270; J2370; J2405; J2800; J3010; J7050; J7120; L0200; L0484

== ENCOUNTER → 2017-05-06 | Outpatient (CLI) | payer MEDICARE ==
[~2017-05-06] MED LIST changes: +HYDR-3535 PO; +LISI-519 PO; +LISI10TA3 PO; +PERC10TA27 PO
[2017-05-06 10:20] LABS: HEMATOCRIT 33.7 % (35.0-46.0); MEAN CELL VOLUME 84.2 FL (80.0-100.0); MEAN CORPUSCULAR HEMOGLOBIN 27.8 PG (27.0-34.0); PLATELET COUNT 265 TH/MM3 (150-450); RED CELL DISTRIBUTION WIDTH 15.1 % (11.6-17.2); REVIEW FLAG FINAL; WHITE BLOOD COUNT 7.9 TH/MM3 (4.0-11.0)
[2017-05-06 10:31] LABS: APTT (PATIENT) 22.2 SEC (24.3-30.1); INTERNATIONAL NORMALIZED RATIO 0.9 RATIO; PROTHROMBIN TIME - PATIENT 10.2 SEC (9.8-11.6)
[2017-05-06 10:49] LABS: BICARBONATE 25.6 MEQ/L (21.0-32.0); POTASSIUM 4.5 MEQ/L (3.5-5.1)
--- NOTE | 2017-05-06 11:47 | RADRPT ---
EXAM DATE/TIME: 05/06/2017 10:59 [facility] COMPARISON: No previous studies available for comparison. INDICATIONS : Evaluate for communicable disease and pneumonia. MEDICAL HISTORY : Myocardial infarction. SURGICAL HISTORY : Coronary artery stent. ENCOUNTER: Initial ACUITY: 1 day PAIN SCORE: 0/10 LOCATION: Bilateral chest FINDINGS: The lungs are clear without infiltrate, nodule, or mass. There is no appreciable pleural effusion fo r technique. Heart and mediastinum are unremarkable. CONCLUSION: No acute cardiopulmonary disease. Leonie Fiore MD on May 06, 2017 at 11:45 Board Certified Radiologist. This report was verified electronically.
--- NOTE | 2017-05-07 10:40 | EKG ---
Date Performed: 05/06/2017 Time Performed: 10:33:17 PTAGE: 66 years EKG: Sinus rhythm NORMAL ECG NO PREVIOUS TRACING DOCTOR: Trever Hamm Interpretating Date/Time 05/07/2017 10:37:28
== END ==
LOC: CPRE 09:46
PROVIDERS: ATTEND Neurological Surgery
DX: Z01.810 Encounter for preprocedural cardiovascular examination (principal); Z01.811 Encounter for preprocedural respiratory examination; Z01.818 Encounter for other preprocedural examination; Z79.01 Long term (current) use of anticoagulants; I25.2 Old myocardial infarction
CPT/HCPCS: 36415; 71020; 80048; 85027; 85610; 85730; 93005